=== PATIENT | female | born 1990 | race Caucasian/White ===

== ENCOUNTER → 2023-05-19 | Outpatient (CLI) | payer BC ==
[~2023-05-19] MED LIST: ATARAX 10MG10 MG/TAB PO; CYMBALTA60 M1 PO
[2023-05-19 14:42] LABS: HEMATOCRIT 42.8 % (37.0-47.0); HEMOGLOBIN 14.1 g/dL (12.5-16.0); MEAN PLATELET VOLUME 10.1 fl (7.4-10.4); RED BLOOD COUNT 4.75 M/mm3 (4.10-5.30); RED CELL DISTRIBUTION WIDTH 12.6 % (11.5-14.5); WHITE BLOOD COUNT 9.9 K/mm3 (4.8-10.8)
[2023-05-19 14:49] LABS: ALBUMIN 4.4 g/dL (3.5-5.0)
[2023-05-19 14:51] LABS: CALCIUM 9.1 mg/dL (8.3-10.5)
[2023-05-19 14:52] LABS: TOTAL PROTEIN 7.7 g/dL (6.4-8.3)
[2023-05-19 14:54] LABS: TOTAL BILIRUBIN 0.6 mg/dL (0.2-1.2)
== END ==
LOC: LAB 14:14
PROVIDERS: Nurse Practitioner Family
DX: M54.50 Low back pain, unspecified (principal)